=== PATIENT | female | born 1995 | race Caucasian/White ===

== ENCOUNTER 2017-04-01 19:22 | Emergency (ER) | payer OTHER ==
[~2017-04-01] VITALS: Ht 177.8 cm; Wt 85.9 kg
[~2017-04-01 19:22] MED LIST: ACET-1256 PO; ASPI-390 PO; [UNRECOGNIZED DRUG - CODE] PO
[2017-04-01 19:34] VITALS: TEMP 36.8; Ht 177.8 cm; Wt 85.9 kg
[2017-04-01] MEDS ORDERED: OPTIRAY 320 IV PRN (20:45)
[2017-04-01 21:17] LABS: BASO % 0.2 %; BASO ABS # 0.01 K/uL (0-0.2); EOS % 0.2 %; EOS ABS # 0.01 K/uL (0-0.5); HEMATOCRIT 40.5 % (37-47); IG# 0.01 K/uL (0.00-0.02); LYMPH % 30.8 %; LYMPH ABS # 1.85 K/uL (1.2-3.4); MEAN CELL VOLUME 89.6 fL (80-100); MEAN CORPUSCULAR HGB CONC 34.6 g/dl (32-36); MEAN PLATELET VOLUME 10.4 fL (7.4-10.4); MONO % 15.8 %; MONO ABS # 0.95 K/uL (0.11-0.59); NEUT % 52.8 %; NEUT ABS # 3.18 K/uL (1.4-6.5); PLATELET COUNT 152 K/uL (130-400); RED CELL DISTRIBUTION WIDTH CV 13.1 % (11.5-14.5); WHITE BLOOD COUNT 6.01 K/uL (4.8-10.8)
[2017-04-01 21:34] LABS: ALBUMIN 4.5 gm/dl (3.4-5.0); ALT/SGPT 21 U/L (12-78); BLOOD UREA NITROGEN 14 mg/dl (7-18); CALCIUM 9.5 mg/dl (8.5-10.1); CARBON DIOXIDE 25 mmol/L (21-32); CREATININE 0.66 mg/dl (0.60-1.20); GLUCOSE 73 mg/dl (70-99); LIPASE 99 U/L (73-393); POTASSIUM 3.7 mmol/L (3.5-5.1); SODIUM 141 mmol/L (136-145)
[2017-04-01 21:36] LABS: ALKALINE PHOSPHATASE 46 U/L (45-117); AST/SGOT 25 U/L (15-37); TOTAL PROTEIN 8.6 gm/dl (6.4-8.2)
--- NOTE | 2017-04-01 22:04 | DIAGNOSTIC IMAGING REPORT ---
ABD/PELVIS IV CONTRAST ONLY CT DOSE: 535.04 mGy.cm HISTORY: Pain rlq abd pain TECHNIQUE: Multiaxial CT images of the abdomen and pelvis were performed following the use of intravenous contrast. A dose lowering technique was utilized adhering to the principles of ALARA. COMPARISON STUDY: None. FINDINGS: The lung bases are clear. The liver, spleen, gallbladder, pancreas, kidneys, and adrenal glands are within normal limits. No bowel wall thickening or obstruction. The pelvic organs are unremarkable. No suspicious lytic or blastic osseous lesions. 3 cm right ovarian cyst. Normal appendix. Nonobstructive bowel pattern. IMPRESSION: No significant abnormality identified within the abdomen or pelvis. 3 cm right ovarian cyst. Normal appendix. Nonobstructive bowel pattern The above report was generated using voice recognition software. It may contain grammatical, syntax or spelling errors. Electronically signed by: David Dash M.D. 04/01/2017 10:03 PM Dictated Date/Time: 04/01/2017 10:01 PM
[2017-04-01 22:52] VITALS: BP 109/70; PULSE 95; O2SAT 98
--- NOTE | 2017-04-02 00:11 | EMERGENCY ROOM VISIT NOTE ---
History Report prepared by Denice: Ander Woodward Under the Supervision of: Tarik ClarkeO. First contact with patient: 20:15 Chief Complaint: ABDOMINAL PAIN Stated Complaint: ABDOMINAL PAIN,FEVER Nursing Triage Summary: Pt complains of right lower abdominal pain today. +nausea Last BM 2 days ago. History of Present Illness The patient is a 21 year old female who presents to the Emergency Room with complaints of constant sharp right-sided abdominal pain beginning 2 days ago. The patient states that she had blood in her stool 2 days ago after straining to have a bowel movement. She notes that she has not had a bowel movement since then. She reports that her pain goes through to her back. The patient states that she currently has a left-sided ovarian cyst, but does not have a history of hemorrhoids. She notes that her last normal menstrual period was 6 weeks ago. She reports that her current pain is not similar to any pain she had from her ovarian cyst. She also complains of nausea, mucus in her throat, citlalli an intermittent fever. Pt denies headache, change in vision, chest pain, shortness of breath, vomiting, diarrhea, pain with urination, vaginal bleeding, vaginal discharge, and chance of . Source of History: patient Onset: 2 days ago Position: abdomen (right-sided) Quality: sharp Timing: constant Associated Symptoms: + fevers (intermittent), + nausea, + back pain, No headache, No chest pain, No SOB, No vomiting, No diarrhea, No urinary symptoms Note: She complains of blood in her stool, mucus in her throat, and melena. She denies any vaginal bleeding/discharge. Review of Systems See HPI for pertinent positives & negatives. A total of 10 systems reviewed and were otherwise negative. Past Medical & Surgical Medical Problems: (1) Left ovarian cyst Family History Diabetes mellitus Hypertension Social History Smoking Status: Never Smoker Alcohol Use: none Drug Use: none Marital Status: single Housing Status: lives with family Occupation Status: employed Current/Historical Medications No Active Prescriptions or Reported Meds Allergies Coded Allergies: Latex (Verified Allergy, Mild, rash, 04/01/17) Physical Exam Vital Signs Date Time Temp Pulse Resp B/P (MAP) Pulse Ox O2 Delivery O2 Flow Rate FiO2 04/01/17 22:52 95 109/70 98 04/01/17 19:34 36.8 106 16 116/78 97 Room Air Physical Exam GENERAL: Sitting up in bed, alert, well appearing, well nourished, no distress, non-toxic EYE EXAM: normal conjunctiva. OROPHARYNX: no exudate, no erythema, lips, buccal mucosa, and tongue normal and mucous membranes are moist NECK: supple, no nuchal rigidity, no adenopathy, non-tender LUNGS: Clear to auscultation. Normal chest wall mechanics HEART: no murmurs, S1 normal and S2 normal ABDOMEN: abdomen soft, non-tender, normo-active bowel sounds, no masses, no rebound or guarding. BACK: Back is symmetrical on inspection and there is no deformity, no midline tenderness, no CVA tenderness. SKIN: no rashes and no bruising UPPER EXTREMITIES: upper extremities are grossly normal. LOWER EXTREMITIES: No pitting edema. NEURO EXAM: Normal sensorium, cranial nerves II-XII grossly intact, normal speech, no gross weakness of arms, no gross weakness of legs. Medical Decision & Procedures ER Provider Diagnostic Interpretation: Radiology results as stated below per my review and the radiologist's interpretation: ABD/PELVIS IV CONTRAST ONLY CT DOSE: 535.04 mGy.cm HISTORY: Pain rlq abd pain TECHNIQUE: Multiaxial CT images of the abdomen and pelvis were performed following the use of intravenous contrast. A dose lowering technique was utilized adhering to the principles of ALARA. COMPARISON STUDY: None. FINDINGS: The lung bases are clear. The liver, spleen, gallbladder, pancreas, kidneys, and adrenal glands are within normal limits. No bowel wall thickening or obstruction. The pelvic organs are unremarkable. No suspicious lytic or blastic osseous lesions. 3 cm right ovarian cyst. Normal appendix. Nonobstructive bowel pattern. IMPRESSION: No significant abnormality identified within the abdomen or pelvis. 3 cm right ovarian cyst. Normal appendix. Nonobstructive bowel pattern The above report was generated using voice recognition software. It may contain grammatical, syntax or spelling errors. Electronically signed by: David Dash M.D. 04/01/2017 10:03 PM Laboratory Results 04/01/17 21:00 Red Blood Count 4.52, Mean Corpuscular Volume 89.6, Mean Corpuscular Hemoglobin 31.0, Mean Corpuscular Hemoglobin Concent 34.6, Mean Platelet Volume 10.4, Neutrophils (%) (Auto) 52.8, Lymphocytes (%) (Auto) 30.8, Monocytes (%) (Auto) 15.8, Eosinophils (%) (Auto) 0.2, Basophils (%) (Auto) 0.2, Neutrophils # (Auto ) 3.18, Lymphocytes # (Auto) 1.85, Monocytes # (Auto) 0.95, Eosinophils # (Auto ) 0.01, Basophils # (Auto) 0.01 04/01/17 21:00 Test 04/01/17 21:00 White Blood Count 6.01 K/uL (4.8-10.8) Red Blood Count 4.52 M/uL (4.2-5.4) Hemoglobin 14.0 g/dL (12.0-16.0) Hematocrit 40.5 % (37-47) Mean Corpuscular Volume 89.6 fL (80-100) Mean Corpuscular Hemoglobin 31.0 pg (25-34) Mean Corpuscular Hemoglobin Concent 34.6 g/dl (32-36) Platelet Count 152 K/uL (130-400) Mean Platelet Volume 10.4 fL (7.4-10.4) Neutrophils (%) (Auto) 52.8 % Lymphocytes (%) (Auto) 30.8 % Monocytes (%) (Auto) 15.8 % Eosinophils (%) (Auto) 0.2 % Basophils (%) (Auto) 0.2 % Neutrophils # (Auto) 3.18 K/uL (1.4-6.5) Lymphocytes # (Auto) 1.85 K/uL (1.2-3.4) Monocytes # (Auto) 0.95 K/uL (0.11-0.59) Eosinophils # (Auto) 0.01 K/uL (0-0.5) Basophils # (Auto) 0.01 K/uL (0-0.2) RDW Standard Deviation 43.0 fL (36.4-46.3) RDW Coefficient of Variation 13.1 % (11.5-14.5) Immature Granulocyte % (Auto) 0.2 % Immature Granulocyte # (Auto) 0.01 K/uL (0.00-0.02) Urine Color YELLOW Urine Appearance CLOUDY (CLEAR) Urine pH 5.0 (4.5-7.5) Urine Specific Roy 1.032 (1.000-1.030) Urine Protein NEG (NEG) Urine Glucose (UA) NEG (NEG) Urine Ketones 2+ (NEG) Urine Occult Blood NEG (NEG) Urine Nitrite NEG (NEG) Urine Bilirubin NEG (NEG) Urine Urobilinogen NEG (NEG) Urine Leukocyte Esterase MODERATE (NEG) Urine WBC (Auto) >30 /hpf (0-5) Urine RBC (Auto) 0-4 /hpf (0-4) Urine Hyaline Casts (Auto) 5-10 /lpf (0-5) Urine Epithelial Cells (Auto) >30 /lpf (0-5) Urine Bacteria (Auto) 1+ (NEG) Urine Test NEG (NEG) Anion Gap 9.0 mmol/L (3-11) Est Creatinine Clear Calc Drug Dose 159.3 ml/min Estimated GFR () 145.3 Estimated GFR (Non- 125.4 BUN/Creatinine Ratio 21.0 (10-20) Calcium Level 9.5 mg/dl (8.5-10.1) Total Bilirubin 0.3 mg/dl (0.2-1) Direct Bilirubin < 0.1 mg/dl (0-0.2) Aspartate Amino Transf (AST/SGOT) 25 U/L (15-37) Alanine Aminotransferase (ALT/SGPT) 21 U/L (12-78) Alkaline Phosphatase 46 U/L (45-117) Total Protein 8.6 gm/dl (6.4-8.2) Albumin 4.5 gm/dl (3.4-5.0) Lipase 99 U/L (73-393) Laboratory results per my review. ED Course ED COURSE: Vital signs were reviewed and showed that the patient was tachycardic. The patients medical record was reviewed The above diagnostic studies were performed and reviewed. ED treatments and interventions as stated above. 2020: The patient was evaluated in room B4. A complete history and physical examination was performed. 2215: I reevaluated and updated the patient. 2251: Upon reevaluation, the patient is stable. I discussed my findings with the patient and she understands and agrees with the treatment plan. Based on the patients age, coexisting illnesses, exam and lab findings the decision to treat as an outpatient was made. The patient remained stable while under my care. The patient appeared well at the time of discharge. Medical Decision Differential diagnoses includes but is not limited to gastritis, peptic ulcer disease, GERD, gallbladder disease, pancreatitis, small bowel obstruction, acute coronary syndrome, pericarditis, ischemic bowel, irritable bowel disease, irritable bowel syndrome, appendicitis, diverticulitis, malignancy, hernia, urinary tract infection, torsion, /ectopic , perforation, trauma, infectious. Patient is a 21-year-old female who presents to ER for right lower quadrant abdominal pain. Pain started around 7 PM tonight. She notes she has a history of ovarian cyst. She did have some blood in her stool 2 days ago but none since then. She notes her stool was very hard in the stool was not dark or tarry. CBC shows no significant leukocytosis or anemia. BMP was unremarkable. BUN was not elevated to suggest any kind of active upper GI bleed. Bilirubin all LFTs and lipase is normal. UA was contaminated with multiple epithelial cells. Will not treat at this time as she has no urinary complaints. was negative. No vaginal complaints. CT does show right ovarian cyst which I do favor as the cause of her pain. At this time she was discharged follow-up and to take Tylenol or Motrin as needed for pain. Blood Pressure Screening Patient's blood pressure: Normal blood pressure Blood pressure disposition: Did not require urgent referral Impression Primary Impression: Right ovarian cyst Additional Impression: Abdominal pain Scribe Attestation The scribe's documentation has been prepared under my direction and personally reviewed by me in its entirety. I confirm that the note above accurately reflects all work, treatment, procedures, and medical decision making performed by me. Departure Information Dispostion Home / Self-Care Prescriptions No Active Prescriptions or Reported Meds Referrals Landen Hassan M.D.([facility]) (PCP) Forms HOME CARE DOCUMENTATION FORM, IMPORTANT VISIT INFORMATION Patient Instructions My [facility] Additional Instructions Please follow up with your primary care doctor with in the next 24 hours. Any worsening of your symptoms, please return to the ED immediately. This includes any fevers greater than 100.4, worsening pain, chest pain, shortness breath, persistent nausea, vomiting, unable to eat or drink, or any other concerning signs or symptoms from your standpoint. Please take Tylenol or Motrin as needed for pain. Problem Qualifiers Additional Impression: Abdominal pain Abdominal location: right lower quadrant Qualified Codes: R10.31 - Right lower quadrant pain
== END 2017-04-01 22:52 | disposition home or self-care (01) ==
LOC: C.EDB 19:23
DX: N83.201 Unspecified ovarian cyst, right side (principal); R10.31 Right lower quadrant pain; K92.1 Melena; R11.10 Vomiting, unspecified; Z83.3 Family history of diabetes mellitus; Z82.49 Family history of ischemic heart disease and other diseases of the circulatory system

== ENCOUNTER 2017-10-14 09:29 | Emergency (ER) | payer SELFPAY ==
[~2017-10-14] VITALS: Ht 177.8 cm; Wt 89.0 kg
[2017-10-14 09:32] VITALS: TEMP 36.7; Ht 177.8 cm; Wt 89.0 kg
[2017-10-14] MEDS ORDERED: TERB1CRE32 TOP (10:04)
[2017-10-14] MEDS ORDERED: LIDO/EPINEPHRINE/SOD BICARB 20 ML VIAL INFIL ONE (10:15)
[2017-10-14] MEDS ORDERED: SULF800T23 PO (11:15)
--- NOTE | 2017-10-14 11:16 | EMERGENCY ROOM VISIT NOTE ---
ED Visit Note First contact with patient: 09:36 CHIEF COMPLAINT: Infection on the left upper back 5 days HISTORY OF PRESENT ILLNESS: Patient is a 22-year-old female who presents the emergency department accompanied by her significant other for evaluation of a persistent abscess on her left upper back. Patient states that she had a small area there that started about a week or week and half ago. She thought it was a pimple and that it would get better, but her symptoms worsened and became larger more red, hard and tender. She was seen at a [facility] facility on Saturday, 10/09, and had the area drained. The wound was not packed. They did take a culture. They placed her on Bactrim DS twice daily for 5 days, she took her last dose of Bactrim this morning. The patient got a call from [facility] yesterday that the culture was positive for MRSA. Patient states that there is still puslike drainage in the wound and that the area does not appear to be getting any better although she does note that swelling and redness have subsided. She rates her discomfort a 3/10. 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 Patient has not documented any fevers. REVIEW OF SYSTEMS: Review of systems as per HPI. All other systems reviewed were negative. 10 systems reviewed. PMH: Electronic medical records are reviewed and summarized as above/below. See Problem List. Tetanus is up-to-date in 2013. SOCIAL HISTORY: Patient lives at home with her girlfriend and daughter. Employed. Non-smoker.. PHYSICAL EXAM: Vital Signs: Reviewed Nurse's notes. CONSTITUTIONAL: Patient is a well-appearing 22-year-old female who is awake and alert and in no acute distress. INTEGUMENTARY: Examination of the left upper back, posterior shoulder region note an open, roughly 2 cm in diameter abscess, with purulent material in the base of the wound. There is very minimal surrounding erythema and induration. No overt cellulitic changes. EMERGENCY DEPARTMENT COURSE: The patient was seen and examined as above. She had a reported abscess drained from her left upper back about 5 days ago. She has not cleansed the area, and has only been changing the bandages. She has been on 5 days of Bactrim. It was felt that the area needed to be debrided. The wound was cleansed with Betadine, and anesthetized with 1% Buffered lidocaine with epinephrine. When adequate anesthesia was obtained, the plug of purulent material that was in the wound cleared using irrigation. The area was irrigated copiously with normal saline solution and diluted Betadine. Patient does appear to have a cystic structure, which raises the possibility of a sebaceous cyst as the underlying pathology, however she declines having any type of skin lesion at this site prior to the abscess. Nonetheless, it was felt that the wound would benefit from packing. Pain as packing dipped in Betadine was layered into the abscess cavity. An absorbent dressing was applied. Patient will be placed on an additional 5 days of Bactrim. She and her significant other were educated on wound care measures, as she will likely need to to have the wound packed every couple of days for the next week or so until it begins to granulate in. Her significant other was comfortable doing this. The patient does not have any medical insurance, therefore was directed back to the emergency department for any worsening symptoms. She is appropriately covered with antibiotics, and the wound is easily covered and it was felt that she can return to work. Patient was discharged in good condition. Medication reconciliation: I attest that I have personally reviewed the patient' s current medication list. Blood pressure screening : Patient was found to have normal blood pressure on screening and does not require follow-up. Problem List Medical Problems: (1) Abdominal pain Status: Resolved (2) Active labor at term Status: Resolved (3) Fever Status: Resolved (4) Fever Status: Resolved (5) Laceration Status: Resolved (6) Laceration of upper limb Status: Resolved (7) Left ovarian cyst Status: Resolved (8) No significant past medical history Status: Chronic (9) Ovarian cyst Status: Resolved (10) Pain, dental Status: Resolved (11) labor Status: Resolved (12) Right ovarian cyst Status: Resolved (13) Right upper quadrant abdominal pain Status: Resolved (14) UTI (urinary tract infection) Status: Resolved Current/Historical Medications Scheduled Sulfa/Trimethoprim (Bactrim Ds 800MG/160MG), 1 TAB PO BID Scheduled PRN Terbinafine Hcl (Topical) (Lamisil At), 1 APPLN TOP 2XWK PRN for ECZEMA Allergies Coded Allergies: Latex (Verified Allergy, Mild, rash, 10/14/17) Vital Signs Date Time Temp Pulse Resp B/P (MAP) Pulse Ox O2 Delivery O2 Flow Rate FiO2 10/14/17 11:56 76 18 110/76 98 10/14/17 09:32 36.7 87 18 106/66 94 Room Air Departure Information Impression Primary Impression: Abscess of upper back excluding scapular region Prescriptions Sulfa/Trimethoprim (Bactrim Ds 800MG/160MG) Tab 1 TAB PO BID, #10 TAB Prov: Mary Norris PA 10/14/17 Referrals Landen Hassan M.D. ([facility]) (PCP) Patient Instructions My [facility] Additional Instructions Trimethoprim-Sulfamethoxazole(Bactrim DS): Take one pill twice daily for an additional 5 days for your skin infection. All antibiotics can cause diarrhea. If this occurs and you feel worse or it does not resolve in 1-2 days follow up with your doctor or return to the Emergency Department as this could be signs of serious underlying problems. Any medication can cause an allergic reaction, stop the pills immediately and return to the ER for rash, hives, breathing difficulties, or swelling. Ibuprofen(Motrin, Advil) may be used for fever or pain. Use 600mg every six hours as needed. Take with food. Avoid using more than 2400mg in a 24 hour period. Do not use 2400mg per day for more than three consecutive days without physician direction. Prolonged inappropriate use can lead to stomach upset or ulcers. (AND/OR) Acetaminophen(Tylenol) may be used for fever or pain. Use 1000mg every six hours as needed. Avoid using more than 3000mg in a 24 hour period. Warm compresses to the affected area 4 times daily for 15-20 minutes. Dressing and packing changes every 2 days. Clean gently with mild soap and water and repack. Cover with a bandage until healed. Rest and drink plenty of fluids. Continue current medications. Return to the ER for recheck if needed.
[2017-10-14 11:56] VITALS: BP 110/76; PULSE 76; O2SAT 98
== END 2017-10-14 11:57 | disposition home or self-care (01) ==
LOC: C.EDB 09:31
DX: L02.212 Cutaneous abscess of back [any part, except buttock and flank] (principal); Z91.040 Latex allergy status

== ENCOUNTER 2017-10-17 08:12 | Emergency (ER) | payer SELFPAY ==
[~2017-10-17] VITALS: Ht 177.8 cm; Wt 87.5 kg
[~2017-10-17 08:12] MED LIST changes: -ACET-1256 PO; -ASPI-390 PO; +SULF800T23 PO; +TERB1CRE32 TOP; -[UNRECOGNIZED DRUG - CODE] PO
[2017-10-17 08:14] VITALS: TEMP 36.5; Ht 177.8 cm; Wt 87.5 kg
[2017-10-17] MEDS ORDERED: PRED20TA2 PO (08:54)
[2017-10-17 09:31] VITALS: BP 100/43; PULSE 99; O2SAT 99
--- NOTE | 2017-10-17 15:22 | EMERGENCY ROOM VISIT NOTE ---
ED Visit Note First contact with patient: 08:21 Chief Complaint: Itchy rash and fever. History of Present Illness: Ms. Crowley is a 22-year-old white female who ambulates into the ED accompanied by female friend complaining of an itchy rash associated with fever, lightheadedness and dyspnea on exertion. Historically patient reports she was seen approximately October 31 at a local urgent care center and reports that she had an abscess drained that was on her thoracic back. Cultures came back MRSA positive and she was placed on Bactrim. She did a 5 day course of Bactrim with mild relief of her discomfort. She was seen in this emergency department on October 07 on reevaluation because she felt her abscess was not getting any better. At that time an I&D procedure was performed and she was placed on an additional 5 day course of Bactrim. She returns today that when she woke up this morning she had a temperature of 99 F, she noted a red rash over most of her body that was itchy, she felt lightheadedness and reports became short of breath with ambulation. She reports she has taken ibuprofen for these symptoms and had resolution of fever but the other symptoms persist. Additionally she reports she has continues to have some achiness in the area of her I&D procedure. She rates this discomfort 2/10. The pain is nonradiating. She has not identified any aggravating or alleviating pain. She denies return of headache, dizziness, chest pain, cough, wheezing, sensations of throat swelling, tongue swelling, lip swelling, wheezing, dyspnea at rest, orthopnea, dependent edema, chest pain, palpitations, previous clots, claudication, cramping, abdominal pain, nausea, vomiting, joint pains, extremity weakness/numbness/tingling. Review of Systems: As noted above in history of present illness. 8 body systems were reviewed and found to be negative as noted above. Past Medical History: As previously noted, left ovarian cyst. Current Medications: Patient denies. Allergies to Medications: Latex. Social History: Patient is currently employed; she lives with her girlfriend feels safe in her home environment; she denies tobacco use. Physical Examination: Vital Signs: Date Time Temp Pulse Resp B/P (MAP) Pulse Ox O2 Delivery O2 Flow Rate FiO2 10/17/17 09:31 99 20 100/43 99 10/17/17 08:14 36.5 110 20 112/72 98 Room Air GENERAL: 22-year-old female in mild distress due to pain, nontoxic-appearing, afebrile and hemodynamically stable. NEUROLOGICAL: Awake, alert and oriented to person, place and time. Answering questions appropriately and following commands. Normal gait. Good hand eye coordination. No focal motor or sensory deficits. SKIN: Warm, dry and pink. Upper Body: Over most of the upper body excluding the face patient has flat erythematous lesions consistent with hives. Positive dermatographia testing. Thoracic Back: Patient's I&D site is clean dry and intact without signs of erythema or worsening infection. Her packing was removed and she has had resolution of any additional purulent drainage. No lymphangitis or palpable abscesses in this area. HEENT: Atraumatic and normocephalic. Sclera white and conjunctiva pink. No drainage from naris. No lip or tongue swelling. Oral cavity moist and pink. Airway is patent. Pharynx is nonerythematous or edematous. Speech normal. No lymphadenopathy. Trachea midline. No jugular venous distention. No auditory or auscultatory stridor. BACK: No tenderness over the bony spine. No paraspinous muscle spasm. No CVA tenderness. THORAX: Lungs sounds are clear to auscultation and equal bilaterally with symmetrical chest wall. No wheezing, rales or rhonchi. No crepitus, tenderness , subcutaneous air or deformities noted. HEART: Regular rate and rhythm. No gallops, rubs or murmurs are appreciated. ABDOMEN: Flat, soft and nontender. Positive bowel sounds in all quadrants. No guarding, rigidity or organomegaly. ED Course: Patient is assessed as noted above. Patient's medication list was reviewed. Patient was given 60 mg of prednisone orally for her hives. Patient's case was reviewed with Dr. Chavira; we agreed on diagnostic approach, treatment, disposition and plan. Patient was educated about today's findings and on her treatment plan; she verbalized understanding and agreement with this plan. Clinical Impression: Allergic reaction to Bactrim. Improving abscess. Disposition: Patient discharged home in stable condition accompanied by female friend; prior to departure she was reassessed and subjectively reported she was feeling better. Plan: Patient was encouraged to stop Bactrim. Patient was encouraged to simply clean her wound with soap and water and cover with a bacitracin dressing. Patient was prescribed prednisone 60 mg once a day for the next 4 days. Patient was encouraged use 25-50 mg of Benadryl every 6 hours until resolution of itchy skin and hives. Patient was encouraged to use 150 mg of ranitidine every 12 hours until resolution of itchy skin and hives. Patient was encouraged to avoid hot baths/showers and use cool compresses for severe itching areas. Patient was encouraged to continue to watch her wound for increasing signs of infection. Patient was encouraged to follow-up with her PCP or return to the ED for worsening allergic reactions including increasing hives, sensations of tongue/ lip/throat swelling, shortness of breath/wheezing, worsening signs of infection , recheck of her I&D site in 36-48 hours or any new/concerning symptoms
== END 2017-10-17 09:32 | disposition home or self-care (01) ==
LOC: C.EDB 08:13
DX: L02.212 Cutaneous abscess of back [any part, except buttock and flank] (principal); Z48.00 Encounter for change or removal of nonsurgical wound dressing; T37.0X5A Adverse effect of sulfonamides, initial encounter; Z91.040 Latex allergy status